=== PATIENT | male | born 1995 | race African-American/Black ===

== ENCOUNTER 2016-12-24 19:12 | Emergency (ER) | payer OTHER ==
[~2016-12-24 19:12] MED LIST: NAPR500T PO
[2016-12-24 19:18] VITALS: BP 142/71
[2016-12-24] MEDS ORDERED: NAPR500T PO (19:49)
--- NOTE | 2016-12-24 19:49 | PHYS DOC ---
Past Medical History Past Medical History: Asthma Past Surgical History: No Surgical History Additional Information: Nonsmoker Alcohol Use: Occasionally Drug Use: Marijuana Adult General Chief Complaint Chief Complaint: WRIST PAIN HPI HPI Patient is a 21 year old male who presents with right hand and wrist pain for approximately 2 months. He states that the pain increased yesterday. He denies any new injury. He does do weightlifting with dumbbells regularly. He states that the weightlifting does hurt his hand and wrist, however he "works through the pain." He has intermittent tingling in all of his fingers. The patient was seen here on 11/10/16 after an injury. He had x-rays done at that time of the hand and wrist were negative. He returned on 11/22/16 with the same complaint. He was given a wrist brace at the second visit. He was given prescription for naproxen both visit. He was also given contact information for orthopedics at both visits. He has not been wearing the brace at home until last night. He has not taken the prescription medications, stating that he does not believe in taking medication. He has not contacted the orthopedic doctor for follow-up. Review of Systems Review of Systems Constitutional: Denies fever or chills. [] Musculoskeletal: Reports right hand and wrist pain. Integument: Denies rash or skin lesions. [] Neurologic: Denies focal weakness. Reports intermittent tingling in the fingers of the right hand. Allergies Allergies Allergies Coded Allergies Type Severity Reaction Last Updated Verified No Known Drug Allergies 10/31/16 No Physical Exam Physical Exam Constitutional: Well developed, well nourished, no acute distress, non-toxic appearance. [] HENT: Normocephalic, atraumatic, oropharynx moist. [] Eyes: PERRLA, EOMI, conjunctiva normal, no discharge. [] Skin: Warm, dry, no erythema, no rash. [] Extremities: There is tenderness over the right first metacarpal and the distal ulna on the ventral side, ROM intact, no edema. There is no scaphoid tenderness. 2+ radial and ulnar pulses. Less than 2 second capillary refill in the fingers of the right hand. Light touch sensation intact and the fingers of the right hand. There is no tenderness over the phalanges. There is no radial tenderness. The patient reports mild pain with Tinel's sign. Negative Phalen. Neurologic: Alert and oriented X 3, normal motor function, normal sensory function, no focal deficits noted. [] Psychologic: Affect normal, judgement normal, mood normal. [] Current Patient Data Vital Signs Vital Signs Date Time Temp Pulse Resp B/P Pulse Ox O2 Delivery O2 Flow Rate FiO2 12/24/16 19:18 98.0 65 18 99 Room Air 98.0 EKG EKG [] Radiology/Procedures Radiology/Procedures 10/31/16 xrays REASON: tire fell on hand, pinned between tire and wall, scaphoid tender PROCEDURE: HAND RIGHT 3V; WRIST 3V RIGHT Exam performed: Right wrist and hand 3 views. Indication: Diaphragm on the patient's hand, pain in the distal common. Date of Service:10/31/16 Comparison: None available 3 views right hand findings: PA, oblique lateral radiographs of the hand reveal the osseous structures to be intact and well aligned. The joint spaces are well-preserved. The articular margins are smooth. No soft tissue swelling or foreign bodies detected. Impression: 1. No acute abnormality seen in the right hand. End impression 3 views right wrist findings: Normal alignment of the wrist joint is preserved. There is no acute fracture or dislocation. No soft tissue swelling or foreign body seen. Impression: 1. No acute abnormality seen in the right wrist. Course & Med Decision Making Course & Med Decision Making Pertinent Labs and Imaging studies reviewed. (See chart for details) Patient presents with continued pain in the right hand and wrist. On exam, he has tenderness over the first metacarpal and the ventral side of the distal ulna. He is neurovascularly intact. There is no scaphoid tenderness. He had negative x-rays performed here in denies new injury. He has not taken any medication or had any follow-up. I advised the patient that we are limited in our evaluation ability to the emergency department, which is why he was encouraged to follow-up with orthopedics at his previous visits. He is again encouraged to wear the previously provided wrist brace, especially while he is working. He is again offered prescription for naproxen, which he accepts. He is again given contact information for orthopedics for follow-up. Signs and symptoms to return to the emergency department were discussed. Patient verbalizes understanding and agrees with plan. Dragon Disclaimer Dragon Disclaimer This electronic medical record was generated, in whole or in part, using a voice recognition dictation system. Departure Departure Impression: Primary Impression: Chronic pain of right wrist Additional Impression: Chronic thumb pain Disposition: 01 HOME, SELF-CARE Condition: STABLE Referrals: ALEENA LIZARRAGA II, MD Patient Instructions: Wrist Pain, [id number] Additional Instructions: Please follow-up with the orthopedic doctor listed below for further evaluation of your wrist and hand pain. Please wear the previously provided wrist brace while you're working to help decrease your pain. Please take the prescribed medication as directed for pain. Return to the emergency department if you have any new or concerning symptoms. Scripts Naproxen (Naprosyn)500 Mg Tablet1 Tab PO BID #20 TAB Prov:GALINDO YEPEZ 12/24/16 Problem Qualifiers Additional Impression: Chronic thumb pain Laterality: right Qualified Code: M79.644 - Pain in right finger(s) GALINDO YEPEZ Dec 24, 2016 19:49
== END 2016-12-24 20:10 | disposition home or self-care (01) ==
LOC: ER 19:15
DX: G89.29 Other chronic pain (principal); M25.531 Pain in right wrist; M79.644 Pain in right finger(s); J45.909 Unspecified asthma, uncomplicated; F12.10 Cannabis abuse, uncomplicated
CPT/HCPCS: 99282

== ENCOUNTER 2017-02-21 16:06 | Emergency (ER) | payer SELFPAY ==
[~2017-02-21] VITALS: Ht 170.2 cm; Wt 68.0 kg
[2017-02-21 16:09] VITALS: BP 141/79
[2017-02-21 16:36] LABS: BILIRUBIN,URINE NEGATIVE (NEG); GLUCOSE,URINE NEGATIVE (NEG); NITRITE,URINE NEGATIVE (NEG); PROTEIN,URINE NEGATIVE (NEG-TRACE); UROBILINOGEN,URINE 0.2 mg/dL (0.2 mg/dL)
[2017-02-21 16:40] LABS: BARBITURATES NEG (NEG); BENZODIAZEPINES NEG (NEG); CANNABINOIDS POS (NEG); COCAINE NEG (NEG); ETHANOL, URINE NEG (NEG); METHADONE NEG (NEG); OPIATES NEG (NEG); PHENCYCLIDINE NEG (NEG)
[2017-02-21 16:42] LABS: BACTERIA,URINE 0 /HPF (0-FEW); RBC,URINE OCC /HPF (0-2); SQUAMOUS EPITHELIAL CELL,UR OCC /LPF; WBC,URINE OCC /HPF (0-4)
[2017-02-21] MEDS ORDERED: AZITHROMYCIN 250 MG TABLET. PO ONE (16:45)
[2017-02-21] MEDS ORDERED: CEFTRIAXONE IM 250 MG VIAL. IM ONE (16:45)
[2017-02-21] MEDS ORDERED: METRONIDAZOLE 500 MG TABLET. PO ONE (16:45)
[2017-02-21] MEDS ORDERED: CIPR500T94 PO (17:03)
--- NOTE | 2017-02-21 17:03 | PHYS DOC ---
Past Medical History Past Medical History: Asthma Past Surgical History: No Surgical History Alcohol Use: None Drug Use: Marijuana Adult General Chief Complaint Chief Complaint: URINARY FREQUENCY HPI HPI Patient is a 21 year old female presents emergency department stating that he is having urinary frequency and pain with urination. Patient states that he has sharp pains in his anal area. He denies any penile drainage or discharge. He denies any upper ex or any discoloration around the penis. He does state he sexually active although he states that he wrapped it up. He states that he has 4 partners. He denies taking any medication for the pain and discomfort. Patient does state he smoked marijuana. Review of Systems Review of Systems Constitutional: Denies fever or chills [] Eyes: Denies change in visual acuity, redness, or eye pain [] HENT: Denies nasal congestion or sore throat [] Respiratory: Denies cough or shortness of breath [] Cardiovascular: No additional information not addressed in HPI [] GI: Denies abdominal pain, nausea, vomiting, bloody stools or diarrhea [] : dysuria denies hematuria [] Musculoskeletal: Denies back pain or joint pain [] Integument: Denies rash or skin lesions [] Neurologic: Denies headache, focal weakness or sensory changes [] Current Medications Current Medications Current Medications Medications (Trade) Dose Ordered Sig/Teresa Start Time Stop Time Status Last Admin Dose Admin Azithromycin (Zithromax) 1,000 mg 1X ONCE 02/21/17 16:45 02/21/17 16:46 DC 02/21/17 16:43 1,000 MG Ceftriaxone Sodium (Rocephin Im) 250 mg 1X ONCE 02/21/17 16:45 02/21/17 16:46 DC 02/21/17 16:44 250 MG Metronidazole (Flagyl) 2,000 mg 1X ONCE 02/21/17 16:45 02/21/17 16:46 DC 02/21/17 16:44 2,000 MG Allergies Allergies Allergies Coded Allergies Type Severity Reaction Last Updated Verified No Known Drug Allergies 02/21/17 No Physical Exam Physical Exam Constitutional: Well developed, well nourished, no acute distress, non-toxic appearance. [] HENT: Normocephalic, atraumatic, bilateral external ears normal, oropharynx moist, no oral exudates, nose normal. [] Eyes: PERRLA, EOMI, conjunctiva normal, no discharge. [] Neck: Normal range of motion, no tenderness, supple, no stridor. [] Cardiovascular:Heart rate regular rhythm, no murmur [] Lungs & Thorax: Bilateral breath sounds clear to auscultation [] Abdomen: Bowel sounds normal, soft, no tenderness, no masses, no pulsatile masses. [] Skin: Warm, dry, no erythema, no rash. [] Back: No tenderness Extremities: No tenderness, no cyanosis, no clubbing, ROM intact, no edema. [] Neurologic: Alert and oriented X 3, normal motor function, normal sensory function, no focal deficits noted. [] Psychologic: Affect normal, judgement normal, mood normal. [] Current Patient Data Vital Signs Vital Signs Date Time Temp Pulse Resp B/P Pulse Ox O2 Delivery O2 Flow Rate FiO2 02/21/17 16:09 96.2 81 18 99 Room Air 96.2 Lab Values Laboratory Tests Test 02/21/17 16:20 Urine Color Yellow Urine Clarity Cloudy Urine pH 7.0 Urine Specific [place] 1.020 Urine Protein Negativemg/dL (NEG-TRACE) Urine Glucose (UA) Negativemg/dL (NEG) Urine Ketones (Stick) Negativemg/dL (NEG) Urine Blood Negative (NEG) Urine Nitrite Negative (NEG) Urine Bilirubin Negative (NEG) Urine Urobilinogen Dipstick 0.2mg/dL (0.2 mg/dL) Urine Leukocyte Esterase Negative (NEG) Urine RBC Occ/HPF (0-2) Urine WBC Occ/HPF (0-4) Urine Squamous Epithelial Cells Occ/LPF Urine Bacteria 0/HPF (0-FEW) Urine Mucus Mod/LPF Urine Opiates Screen Neg (NEG) Urine Methadone Screen Neg (NEG) Urine Barbiturates Neg (NEG) Urine Phencyclidine Screen Neg (NEG) Urine Amphetamine/Methamphetamine Neg (NEG) Urine Benzodiazepines Screen Neg (NEG) Urine Cocaine Screen Neg (NEG) Urine Cannabinoids Screen Pos (NEG) Urine Ethyl Alcohol Neg (NEG) EKG EKG [] Radiology/Procedures Radiology/Procedures [] Course & Med Decision Making Course & Med Decision Making Pertinent Labs and Imaging studies reviewed. (See chart for details) Unable to assess the penile area as the patient was very paranoid and worried about having exam completed. Patient had asked if he could to his car to get a dry mixer, spoke with patient in regards to type of dry mixer needed offered to get a dry mixer for him to borrow. Patient then states he needs to go to the car to get something for someone. Explain to patient that if he leaves it would be considered leaving against medical advise. Patient has chosen to stay. He would also like to be treated for STD and he was explained that it is uncommon for men to have UTI and urinary symptoms. He was also informed that he will need to refrain from sexual intercourse for the next 2 weeks and his partners will need to be treated before having sexual intercourse with them. Urine was negative for UTI. Patient will be provided with Cipro for dysuria. Patient was treated with Rocephin, zithromax and flagyl here in the emergency department. He will be discharged home in stable condition with recommendations to avoid recreational drugs, refrain from sexual intercourse for 2 weeks. Patient was provided with signs and symptoms to return to the emergency department. [] Dragon Disclaimer Dragon Disclaimer This electronic medical record was generated, in whole or in part, using a voice recognition dictation system. Departure Departure Impression: Primary Impression: Dysuria Disposition: 01 HOME, SELF-CARE Condition: STABLE Referrals: NO PCP (PCP) Patient Instructions: Dysuria-Brief Additional Instructions: Activity as tolerated. Medications as prescribed. Drink plenty of fluids such as water and cranberry juice. Avoid cranberry juice cocktail, carbonate beverages, caffeine, citrus fruits and alcohol as these are considered irritants to the bladder. Followup with your primary care provider as needed for signs and symptoms that become worse. Return to emergency department as needed for signs and symptoms that become worse. Scripts Ciprofloxacin Hcl (Cipro)500 Mg Tablet1 Tab PO BID #14 TAB Prov:HERSON BEARD APRN 02/21/17 HERSON BEARD APRN Feb 21, 2017 17:03
== END 2017-02-21 18:00 | disposition home or self-care (01) ==
LOC: ER 16:06
DX: R30.0 Dysuria (principal); R35.0 Frequency of micturition; J45.909 Unspecified asthma, uncomplicated; F12.10 Cannabis abuse, uncomplicated
CPT/HCPCS: 80305; 80320; 81001; 87491; 87591; 96372; 99284; J0696; Q0144; G0481